=== PATIENT | male | born 1960 ===

== ENCOUNTER 2016-10-03 14:42 | Outpatient (CLI) | payer OTHER | END 2016-10-03 14:43 | disposition home or self-care (01) | LOC: SC 14:42 | PROVIDERS: ATTEND Internal Medicine Pulmonary Disease | DX: G47.30 Sleep apnea, unspecified (principal); G47.10 Hypersomnia, unspecified; G47.8 Other sleep disorders; R06.83 Snoring | CPT/HCPCS: 99203; 99212 ==

== ENCOUNTER 2016-12-26 21:46 | Outpatient (CLI) | payer OTHER | END 2016-12-26 21:47 | disposition home or self-care (01) | LOC: SC 21:46 | PROVIDERS: ATTEND Internal Medicine Pulmonary Disease | DX: G47.61 Periodic limb movement disorder (principal) | CPT/HCPCS: 95810 ==

== ENCOUNTER 2017-01-21 14:09 | Outpatient (CLI) | payer OTHER | END 2017-01-21 14:10 | disposition home or self-care (01) | LOC: SC 14:09 | PROVIDERS: ATTEND Nurse Practitioner Family | DX: G47.61 Periodic limb movement disorder (principal); R06.83 Snoring | CPT/HCPCS: 99212; 99213 ==